=== PATIENT | female | born 1945 | race Caucasian/White ===

== ENCOUNTER → 2016-07-17 | Outpatient (CLI) | payer MEDICARE ==
--- NOTE | 2016-08-06 07:51 | MM ---
Reason for exam: screening (asymptomatic). Last mammogram was performed 1 year and 1 month ago. History: Patient is postmenopausal, history of other cancer, and had first child at age 34. Physical Findings: A clinical breast exam by your physician is recommended on an annual basis and results should be correlated with mammographic findings. MG 3D Screening Mammo W/Cad Bilateral CC and MLO view(s) were taken. Prior study comparison: June 22, 2015, mammogram, performed at [place]. March 29, 2014, mammogram, performed at [place]. The breast tissue is heterogeneously dense. This may lower the sensitivity of mammography. No significant changes when compared with prior studies. ASSESSMENT: Benign, BI-RAD 2 RECOMMENDATION: Routine screening mammogram of both breasts in 1 year.
== END | disposition home or self-care (01) ==
LOC: RADMAMWWP 09:52
PROVIDERS: ATTEND Family Medicine
DX: Z12.31 Encounter for screening mammogram for malignant neoplasm of breast (principal)
CPT/HCPCS: 77063; G0202

== ENCOUNTER → 2016-07-24 | Outpatient (CLI) | payer MEDICARE ==
--- NOTE | 2016-07-25 07:13 | BD ---
EXAMINATION TYPE: MG DEXA axial skeleton. DATE OF EXAM: 07/24/2016 COMPARISON: NONE CLINICAL HISTORY: Height: 5 ft 2 1/4 in Weight: 132 FRAX RISK QUESTIONS: Alcohol (3 or more units per day): NO Family History (Parent hip fracture): NO Glucocorticoids (More than 3mos): NO (Ex: prednisone, prednisolone, methylprednisolone, dexamethasone, and hydrocortisone). History of Fracture in Adulthood: NO Secondary Osteoporosis: 1. Type 1 Diabetes: NO 2. Hyperthyroidism: NO 3. Menopause before 45: NO 4. Malnutrition: NO 5. Chronic liver disease: NO Rheumatoid Arthritis: NO Current Tobacco Use: NO RISK FACTORS HISTORY OF: Drink Alcohol: YES Active: YES Postmenopausal woman: AGE 57 MEDICATIONS: Additional Medications: LOSARTIN, Additional History: EXAM MEASUREMENTS: Bone mineral densitometry was performed using the [employer]. Bone mineral density as measured about the Lumbar spine is: ----- L1-L4(G/cm2): 1.224 T Score Values are as follows: ----- L2: 0.2 ----- L3: -0.1 ----- L4: 0.7 ----- L1-L4: 0.4 BASELINE Bone mineral density about the R hip (g/cm2): 0.897 Bone mineral density about the L hip (g/cm2): 0.881 T Score values are as follows: -----R Neck: -1.0 -----L Neck: -1.1 -----R Total: -0.3 -----L Total: -0.3 BASELINE IMPRESSION: No evidence of osteopenia or osteoporosis. NOTE: T-SCORE=SD OF THE YOUNG ADULT MEAN.
== END | disposition home or self-care (01) ==
LOC: RADBDWWP 16:11
PROVIDERS: ATTEND Family Medicine
DX: Z13.820 Encounter for screening for osteoporosis (principal)
CPT/HCPCS: 77080

== ENCOUNTER 2016-08-21 06:53 | Day surgery (SDC) | payer MEDICARE ==
[2016-08-19 13:44] VITALS: BMI 24.7
[~2016-08-21 06:53] MED LIST: LACTATED RINGERS 1,000 ML IV SCH
[2016-08-21] MEDS ORDERED: LACTATED RINGERS 1,000 ML IV ONE (07:11)
[2016-08-21 07:26] VITALS: RESP 18; TEMP 97.2
[2016-08-21] MEDS ORDERED: PROPOFOL 10 MG/ML 20 ML VIAL IV ONE (07:56)
[2016-08-21] MEDS ORDERED: LIDOCAINE 1% INJ 10MG/ML (20 ML MDV) ONE (07:56)
--- NOTE | 2016-08-21 07:59 | P.GSHP ---
History of Present Illness H&P Date: 08/21/16 Chief Complaint: Screening colonoscopy This is a 70-year-old female who presents today for screening colonoscopy. Patient had a previous colonoscopy 10 years ago. She states her colonoscopy was normal. Past Medical History Past Medical History: Hyperlipidemia, Hypertension Additional Past Medical History / Comment(s): RING OF EARS History of Any Multi-Drug Resistant Organisms: None Reported Past Surgical History: Tonsillectomy Additional Past Surgical History / Comment(s): vaginal surgery , D&C Past Anesthesia/Blood Transfusion Reactions: No Reported Reaction Smoking Status: Former smoker - Past Family History Father Family Medical History: Cancer Medications and Allergies Home Medications Medication Instructions Recorded Confirmed Type Losartan [Cozaar] 100 mg PO DAILY 08/24/14 08/21/16 History Cholecalciferol [Vitamin D3] 1,000 unit PO DAILY 08/19/16 08/21/16 History Milk Thistle 150 mg PO DAILY 08/19/16 08/21/16 History Allergies Allergy/AdvReac Type Severity Reaction Status Date / Time hornet venom Allergy Swelling,SKIN Verified 08/21/16 07:22 TURNED BRIGHT RED latex Allergy SWELLING Verified 08/21/16 07:22 OF LIPS verapamil Allergy RAISED Verified 08/21/16 07:22 BLOOD PRESSURE Surgical - Exam Vital Signs Temp Pulse Resp BP Pulse Ox 97.2 F L 54 L 18 141/82 98 08/21/16 07:24 08/21/16 07:24 08/21/16 07:24 08/21/16 07:24 08/21/16 07:24 - General well developed, no distress - Eyes PERRL - ENT normal pinna - Neck no masses - Respiratory normal expansion - Cardiovascular Rhythm: regular - Abdomen Abdomen: soft, non tender Assessment and Plan Plan: We'll perform screening colonoscopy.
--- NOTE | 2016-08-21 08:13 | P.OP ---
Date of Procedure: 08/21/16 Preoperative Diagnosis: Screening colonoscopy Postoperative Diagnosis: Normal colon Procedure(s) Performed: Colonoscopy Implants: Anesthesia: MAC Surgeon: Dwight Morrison Pathology: none sent Condition: stable Disposition: PACU Indications for Procedure: Operative Findings: Description of Procedure: PROCEDURE: The patient was placed on the endoscopy table in the lateral position. Digital rectal examination was performed which revealed no abnormalities. s. Flexible colonoscope was then placed in the patient's anus and passed throughout the entire colon. The ileocecal valve was visualized. The cecum, ascending, transverse, descending and sigmoid colon were normal. The rectum was normal as well. There were no masses, polyps or diverticula noted in the entire colon. SUMMARY OF FINDINGS: Normal colonoscopy.
[2016-08-21 08:26] VITALS: PULSE 50
[2016-08-21 08:42] VITALS: BP 106/62
== END 2016-08-21 09:11 | disposition home or self-care (01) ==
LOC: ORWHC2ENDO 06:53
PROVIDERS: ATTEND Surgery
DX: Z12.11 Encounter for screening for malignant neoplasm of colon (principal); E78.5 Hyperlipidemia, unspecified; I10 Essential (primary) hypertension; Z79.899 Other long term (current) drug therapy; Z91.038 Other insect allergy status; Z88.8 Allergy status to other drugs, medicaments and biological substances; Z91.040 Latex allergy status; Z87.891 Personal history of nicotine dependence
CPT/HCPCS: J2001; J2704; G0121

== ENCOUNTER 2017-06-13 09:34 | Emergency (ER) | payer MEDICARE ==
--- NOTE | 2017-06-13 10:23 | ED ---
General Adult HPI - General Chief complaint: Extremity Injury, Lower Stated complaint: Knee pain Time Seen by Provider: 06/13/17 10:03 Source: patient, RN notes reviewed Mode of arrival: ambulatory Limitations: no limitations - History of Present Illness Initial comments: Patient 71-year-old female presenting to the emergency room today with chief complaint of injury to left knee. She states she was sitting at a table went to stand up located to the left felt a pop in the knee. She states that back down. Got up a few minutes later doing the same thing felt another pop. She states pain is only with certain movements. At this time currently pain-free. Denies any other complaints or symptoms. Patient denies any recent fever, chills , shortness of breath, chest pain, back pain, abdominal pain, nausea or vomiting , numbness or tingling, headaches or visual changes, or any other complaints. - Related Data Home Medications Medication Instructions Recorded Confirmed Losartan [Cozaar] 100 mg PO DAILY 08/24/14 06/13/17 Cholecalciferol [Vitamin D3] 1,000 unit PO DAILY 08/19/16 06/13/17 Milk Thistle 150 mg PO DAILY 08/19/16 06/13/17 Previous Rx's Medication Instructions Recorded EPINEPHrine (Auto Inject) [Epipen] 0.3 mg IM ONCE PRN #2 syringe 08/24/14 Allergies Allergy/AdvReac Type Severity Reaction Status Date / Time hornet venom Allergy Swelling,SKIN Verified 06/13/17 10:20 TURNED BRIGHT RED latex Allergy SWELLING Verified 06/13/17 10:20 OF LIPS verapamil Allergy RAISED Verified 06/13/17 10:20 BLOOD PRESSURE Review of Systems ROS Statement: Those systems with pertinent positive or pertinent negative responses have been documented in the HPI. ROS Other: All systems not noted in ROS Statement are negative. Past Medical History Past Medical History: Hyperlipidemia, Hypertension Additional Past Medical History / Comment(s): RING OF EARS History of Any Multi-Drug Resistant Organisms: None Reported Past Surgical History: Tonsillectomy Additional Past Surgical History / Comment(s): vaginal surgery , D&C Past Anesthesia/Blood Transfusion Reactions: No Reported Reaction Past Psychological History: No Psychological Hx Reported Smoking Status: Former smoker - Past Family History Father Family Medical History: Cancer General Exam - General Exam Comments Initial Comments: General: The patient is awake and alert, in no distress, and does not appear acutely ill. Neck: The neck is supple, there is no tenderness or JVD. Musculoskeletal: Normal appearance of the left knee no obvious swelling or deformity. Shows good range of motion both flexion and extension. Sensations are intact pulses equal bilaterally 2+. Strength 5/5. Negative valgus and varus stress. Negative Jonathon's. Neurological: A&O x 3. CN II-XII intact, There are no obvious motor or sensory deficits. Coordination appears grossly intact. Speech is normal. Skin: Skin is warm and dry and no rashes or lesions are noted. Psychiatric: Normal mood and affect. Limitations: no limitations Course Vital Signs 06/13/17 09:55 Temperature 97.5 F L Pulse Rate 64 Respiratory 16 Rate Blood Pressure 142/100 O2 Sat by Pulse 97 Oximetry Medical Decision Making - Medical Decision Making X-ray reviewed negative for any acute abnormality. Results were discussed with the patient. Patient advised to follow-up with orthopedics for further evaluation and possible MRI. Patient advised to use knee brace or Baldo wrap on up and moving around. Advised continued ice elevate the affected area he's tall /ibuprofen for pain as needed. Disposition Clinical Impression: Knee pain Disposition: HOME SELF-CARE Condition: Good Instructions: Knee Pain (ED) Additional Instructions: Please continue to ice elevate affected area at least 4 times a day for 20 minutes at a time. Please use Tylenol/ibuprofen for pain as needed. Please follow-up with orthopedics over the next 2-5 days. Please return to emergency room if the symptoms increase or worsen or for any other concerns. Is patient prescribed a controlled substance at d/c from ED?: No Referrals: Marija Jean Baptiste MD [Primary Care Provider] - 1-2 days Robert King MD [STAFF PHYSICIAN] - 1-2 days Time of Disposition: 10:57
--- NOTE | 2017-06-13 10:49 | XR ---
EXAMINATION TYPE: XR knee complete LT DATE OF EXAM: 06/13/2017 CLINICAL HISTORY: pain TECHNIQUE: Three views of the left knee are obtained. COMPARISON: None. FINDINGS: There is no acute fracture/dislocation. The tri-compartment joint spaces appear within no rmal limits. The overlying soft tissue appears unremarkable. Degenerative spurring noted. IMPRESSION: There is no acute fracture or dislocation ICD 10 NO FRACTURE, INITIAL EVALUATION
[2017-06-13 11:38] VITALS: BP 140/92; PULSE 55; RESP 20; TEMP 98
== END 2017-06-13 11:37 | disposition home or self-care (01) ==
LOC: EC 09:34
DX: M25.562 Pain in left knee (principal); I10 Essential (primary) hypertension; Z87.891 Personal history of nicotine dependence; Z79.899 Other long term (current) drug therapy; Z88.8 Allergy status to other drugs, medicaments and biological substances; Z91.038 Other insect allergy status; Z91.040 Latex allergy status; X50.1XXA Overexertion from prolonged static or awkward postures, initial encounter; Y93.89 Activity, other specified; Y92.009 Unspecified place in unspecified non-institutional (private) residence as the place of occurrence of the external cause
CPT/HCPCS: 99283

== ENCOUNTER → 2017-08-08 | Outpatient (CLI) | payer MEDICARE ==
--- NOTE | 2017-08-11 11:03 | MM ---
Reason for exam: screening (asymptomatic). Last mammogram was performed 1 year and 1 month ago. History: Patient is postmenopausal, history of other cancer, and had first child at age 34. Physical Findings: A clinical breast exam by your physician is recommended on an annual basis and results should be correlated with mammographic findings. MG 3D Screening Mammo W/Cad Bilateral CC and MLO view(s) were taken. Prior study comparison: July 17, 2016, bilateral MG 3d screening mammo w/cad. June 22, 2015, mammogram, performed at [place]. There are scattered fibroglandular densities. No significant changes when compared with prior studies. ASSESSMENT: Benign, BI-RAD 2 RECOMMENDATION: Routine screening mammogram of both breasts in 1 year.
== END | disposition home or self-care (01) ==
LOC: RADMAMWWP 14:27
PROVIDERS: ATTEND Family Medicine
DX: Z12.31 Encounter for screening mammogram for malignant neoplasm of breast (principal)
CPT/HCPCS: 77063; 77067

== ENCOUNTER → 2019-11-25 | Outpatient (CLI) | payer MEDICARE ==
--- NOTE | 2019-11-25 13:08 | XR ---
EXAMINATION TYPE: XR chest 2V DATE OF EXAM: 11/25/2019 COMPARISON: None INDICATION: Cough TECHNIQUE: Frontal and lateral views of the chest are obtained. FINDINGS: The heart size is normal. The pulmonary vasculature is normal. The lungs are clear. IMPRESSION: 1. No acute pulmonary process.
--- NOTE | 2019-11-26 13:36 | MM ---
Reason for exam: screening (asymptomatic). Last mammogram was performed 1 year and 3 months ago. History: Patient is postmenopausal, history of other cancer, and had first child at age 34. Physical Findings: A clinical breast exam by your physician is recommended on an annual basis and results should be correlated with mammographic findings. MG 3D Screening Mammo W/Cad Bilateral CC and MLO view(s) were taken. Prior study comparison: August 11, 2018, bilateral MG 3d screening mammo w/cad. August 08, 2017, bilateral MG 3d screening mammo w/cad. The breast tissue is heterogeneously dense. This may lower the sensitivity of mammography. No significant changes when compared with prior studies. ASSESSMENT: Benign, BI-RAD 2 RECOMMENDATION: Routine screening mammogram of both breasts in 1 year.
== END | disposition home or self-care (01) ==
LOC: RADMAMWWP 06:52
PROVIDERS: ATTEND Family Medicine
DX: Z12.31 Encounter for screening mammogram for malignant neoplasm of breast (principal); R05 Cough
CPT/HCPCS: 71046; 77063; 77067

== ENCOUNTER → 2021-05-08 | Outpatient (CLI) | payer MEDICARE ==
--- NOTE | 2021-05-09 10:22 | MM ---
Reason for exam: screening (asymptomatic). Last mammogram was performed 1 year and 5 months ago. History: Patient is postmenopausal, history of other cancer, and had first child at age 34. Physical Findings: A clinical breast exam by your physician is recommended on an annual basis and results should be correlated with mammographic findings. MG 3D Screening Mammo W/Cad Bilateral CC and MLO view(s) were taken. Prior study comparison: November 25, 2019, bilateral MG 3d screening mammo w/cad. August 11, 2018, bilateral MG 3d screening mammo w/cad. The breast tissue is heterogeneously dense. This may lower the sensitivity of mammography. There are benign appearing round vascular calcifications bilaterally. There is no discrete abnormality. ASSESSMENT: Benign, BI-RAD 2 RECOMMENDATION: Routine screening mammogram of both breasts in 1 year.
== END | disposition home or self-care (01) ==
LOC: RADMAMWWP 16:09
PROVIDERS: ATTEND Family Medicine
DX: Z12.31 Encounter for screening mammogram for malignant neoplasm of breast (principal); Z78.0 Asymptomatic menopausal state
CPT/HCPCS: 77063; 77067

== ENCOUNTER → 2022-06-25 | Outpatient (CLI) | payer MEDICARE ==
--- NOTE | 2022-06-25 18:33 | XR ---
EXAMINATION TYPE: XR foot complete RT DATE OF EXAM: 06/25/2022 COMPARISON: NONE HISTORY: 76-year-old female M7 9.671, right foot pain TECHNIQUE: 3 views FINDINGS: Mild degenerative change first MTP joint. There is mild hallux valgus deformity with bunion formation . Fragmented posterior calcaneal spur at the Achilles insertion. Mild degenerative change of the dors al TMT joints. Mortons toe noted. No acute fracture, subluxation, or dislocation. IMPRESSION: Mild hallux valgus with bunion and mild first MTP joint OA. Way's toe. No acute osseous abnormalit y seen.
--- NOTE | 2022-06-26 08:53 | MM ---
Reason for Exam: Screening (asymptomatic). Last mammogram was performed 1 year(s) and 2 month(s) ago. Patient History: Menarche at age 14. First Full-Term at age 34. Late child-bearing (after 30). Postmenopausal. Patient has history of breast feeding. Risk Values: Isis 5 year model risk: 2.4%. NCI Lifetime model risk: 5.6%. Prior Study Comparison: 08/11/2018 Bilateral Screening Mammogram, [facility]. 11/25/2019 Bilateral Screening Mammogram, [facility]. 05/08/2021 Bilateral Screening Mammogram, [facility]. Tissue Density: The breast tissue is heterogeneously dense. This may lower the sensitivity of mammography. Findings: Analyzed By CAD. There is no suspicious group of microcalcifications or new suspicious mass in either breast. Benign-appearing calcifications within both breasts. Overall Assessment: Benign, BI-RAD 2 Management: Screening Mammogram of both breasts in 1 year. A clinical breast exam by your physician is recommended on an annual basis and results should be correlated with mammographic findings. Electronically signed and approved by: Hao Andrade D.O.
== END | disposition home or self-care (01) ==
LOC: RADMAMWWP 13:36
PROVIDERS: ATTEND Internal Medicine
DX: Z12.31 Encounter for screening mammogram for malignant neoplasm of breast (principal); M19.071 Primary osteoarthritis, right ankle and foot; M20.11 Hallux valgus (acquired), right foot; M21.611 Bunion of right foot; Z78.0 Asymptomatic menopausal state
CPT/HCPCS: 77063; 77067